=== PATIENT | male | born 1980 | race American Indian/Alaskan Native ===

== ENCOUNTER 2018-05-23 23:36 | Emergency (ER) | payer SELFPAY ==
[2018-05-24 00:19] LABS: Basophils % (Auto) 0.7 % (0.0-1.8); Eosinophils # (Auto) 0.2 K/mm3 (0.0-0.4); Eosinophils % (Auto) 3.4 % (0.0-4.3); Hematocrit 42.4 % (35.5-45.6); Hemoglobin 14.7 gm/dl (11.8-15.2); Lymphocytes # (Auto) 2.3 K/mm3 (1.2-5.4); Lymphocytes % (Auto) 41.8 % (13.4-35.0); Mean Corpuscular HGB Conc 35 % (32-34); Mean Corpuscular Hemoglobin 34 pg (28-32); Mean Corpuscular Volume 99 fl (84-94); Monocytes # (Auto) 0.6 K/mm3 (0.0-0.8); Monocytes % (Auto) 10.1 % (0.0-7.3); Platelet Count 231 K/mm3 (140-440); Red Blood Count 4.29 M/mm3 (3.65-5.03); Red Cell Distribution Width 12.8 % (13.2-15.2)
[2018-05-24 00:40] LABS: BUN/Creatinine Ratio 19; Blood Urea Nitrogen 15 mg/dL (9-20); Calcium 9.2 mg/dL (8.4-10.2); Hemolysis Index 16
--- NOTE | 2018-05-24 01:08 | Emergency Department Report ---
ED Chest Pain HPI - General Chief Complaint: Chest Pain Stated Complaint: CHEST PAIN Time Seen by Provider: 05/24/18 00:19 Source: patient Mode of arrival: Ambulatory Limitations: No Limitations - History of Present Illness Initial Comments: 37-year-old male with a past medical history of asthma presents to the hospital complaining of intermittent shooting sharp pain across his mid chest times one week. No active bleeding or leaving prior to supported. Patient denies shortness of breath, nausea, vomiting, lightheadedness, diaphoresis, recent travel, calf tenderness, or edema. Patient has not performed any heavy lifting. - Related Data Previous Rx's Medication Instructions Recorded Last Taken Type Ibuprofen [Motrin] 800 mg PO Q8HR PRN #20 tablet 05/24/18 Unknown Rx Allergies Allergy/AdvReac Type Severity Reaction Status Date / Time No Known Allergies Allergy Unverified 05/23/18 23:54 Heart Score - HEART Score History: Slightly suspicious EKG: Normal Age: < 45 Risk factors: 1-2 risk factors (former smoker) Troponin: < normal limit HEART Score: 1 ED Review of Systems ROS: Stated complaint: CHEST PAIN Other details as noted in HPI Comment: All other systems reviewed and negative ED Past Medical Hx - Past Medical History Previous Medical History?: Yes Hx Asthma: Yes - Surgical History Past Surgical History?: No - Social History Smoking Status: Former Smoker Substance Use Type: None - Medications Home Medications: Home Medications Medication Instructions Recorded Confirmed Last Taken Type Ibuprofen [Motrin] 800 mg PO Q8HR PRN #20 tablet 05/24/18 Unknown Rx ED Physical Exam - General Limitations: No Limitations - Other Other exam information: General: No limitations, patient is alert in no acute distress Head exam: Atraumatic, normocephalic Eyes exam: Normal appearance, pupils equal reactive to light, extraocular movements intact ENT: Moist mucous membrane, normal oropharynx Neck exam: Normal inspection, full range of motion, no meningismus nontender Respiratory exam: Clear to auscultation bilateral, no wheezes, rales, crackles Cardiovascular: Normal rate and rhythm, normal heart sounds, chest wall nontender Abdomen: Soft, nondistended, and nontender, with normal bowel sounds, no rebound, or guarding Extremity: Full range of motion normal inspection no deformity, no calf tenderness or edema Back: Normal Inspection, full range of motion, no tenderness Neurologic: Alert, oriented x3, cranial nerves intact, no motor or sensory deficit Psychiatric: normal affect, normal mood Skin: Warm, dry, intact ED Course Vital Signs 05/23/18 05/24/18 05/24/18 23:54 00:15 00:16 Temperature 98.6 F Pulse Rate 74 Respiratory 20 18 Rate Blood Pressure 159/104 O2 Sat by Pulse 98 97 Oximetry 05/24/18 05/24/18 00:30 00:45 Temperature Pulse Rate 68 75 Respiratory 18 18 Rate Blood Pressure 121/73 146/85 O2 Sat by Pulse 99 98 Oximetry ED Medical Decision Making - Lab Data Result diagrams: 05/24/18 00:06 05/24/18 00:06 Lab Results 05/24/18 05/24/18 05/24/18 Range/Units 00:06 00:06 01:02 WBC 5.5 (4.5-11.0) K/mm3 RBC 4.29 (3.65-5.03) M/mm3 Hgb 14.7 (11.8-15.2) gm/dl Hct 42.4 (35.5-45.6) % MCV 99 H (84-94) fl MCH 34 H (28-32) pg MCHC 35 H (32-34) % RDW 12.8 L (13.2-15.2) % Plt Count 231 (140-440) K/mm3 Lymph % (Auto) 41.8 H (13.4-35.0) % Roosevelt % (Auto) 10.1 H (0.0-7.3) % Eos % (Auto) 3.4 (0.0-4.3) % Baso % (Auto) 0.7 (0.0-1.8) % Lymph # 2.3 (1.2-5.4) K/mm3 Roosevelt # 0.6 (0.0-0.8) K/mm3 Eos # 0.2 (0.0-0.4) K/mm3 Baso # 0.0 (0.0-0.1) K/mm3 Seg Neutrophils % 44.0 (40.0-70.0) % Seg Neutrophils # 2.4 (1.8-7.7) K/mm3 D-Dimer < 135 (0-234) ng/mlDDU Sodium 144 (137-145) mmol/L Potassium 3.7 (3.6-5.0) mmol/L Chloride 104.3 (98-107) mmol/L Carbon Dioxide 26 (22-30) mmol/L Anion Gap 17 mmol/L BUN 15 (9-20) mg/dL Creatinine 0.8 (0.8-1.5) mg/dL Estimated GFR > 60 ml/min BUN/Creatinine Ratio 19 % Glucose 101 H (75-100) mg/dL Calcium 9.2 (8.4-10.2) mg/dL Troponin T < 0.010 (0.00-0.029) ng/mL - EKG Data -: EKG Interpreted by Me EKG shows normal: sinus rhythm, axis (qrs 46), QRS complexes (qrsd 98), ST-T waves (no stemi/t inv) Rate: normal - EKG Data When compared to previous EKG there are: previous EKG unavailable - Radiology Data Radiology results: report reviewed FINAL REPORT EXAM: XR CHEST ROUTINE 2V HISTORY: cp TECHNIQUE: PA and lateral views of the chest were submitted. FINDINGS: The heart size and mediastinum appear normal. The lungs are not congested. There are no localized infiltrates or effusions. There is a 3 mm nodule noted within the right lower lobe. The skeletal structures appear well maintained. IMPRESSION: No acute cardiopulmonary process. 3 millimeter nodule noted in the right lower lobe. If previous studies are available they should be submitted for comparison. Otherwise follow-up chest x-ray and 12 months recommended to confirm stability. - Medical Decision Making Patient does not have any significant cardiac, DVT, or PE risk factors. Pain is atypical. Enzymes and EKG unremarkable. D-dimer negative. Patient blood pressure also borderline in these repeat assessment as outpatient. Patient be treated symptomatically for atypical chest pain and follow up will be encouraged - Differential Diagnosis costochondritis, atypical chest pain, GERD, MD, stable angina, PE Critical Care Time: No Critical care attestation.: If time is entered above; I have spent that time in minutes in the direct care of this critically ill patient, excluding procedure time. ED Disposition Clinical Impression: Atypical chest pain, Elevated blood pressure reading, Lung nodule Disposition: DC- TO HOME OR SELFCARE Is pt being admited?: No Does the pt Need Aspirin: No Condition: Stable Instructions: Chest Pain (ED), How to Take a Blood Pressure (ED), Pulmonary Nodules (ED) Additional Instructions: Take the medication as prescribed. Follow up with your doctor or doctor/clinic provided. Return if symptoms worsen as indicated by your discharge instructions. Your chest x-ray shows a right-sided lung nodule. This needs to be monitored by an outpatient physician with recommended repeat x-ray in 1 year to reassess nodule size. Prescriptions: Ibuprofen [Motrin] 800 mg PO Q8HR PRN #20 tablet PRN Reason: Pain, Moderate (4-6) Referrals: [facility] [Provider Group] - 3-5 Days SHWETA KRISHNAMURTHY MD [Staff Physician] - 3-5 Days Time of Disposition: 02:16
--- NOTE | 2018-05-24 01:30 | XRay Report ---
FINAL REPORT EXAM: XR CHEST ROUTINE 2V HISTORY: cp TECHNIQUE: PA and lateral views of the chest were submitted. FINDINGS: The heart size and mediastinum appear normal. The lungs are not congested. There are no localized infiltrates or effusions. There is a 3 mm nodule noted within the right lower lobe. The skeletal structures appear well maintained. IMPRESSION: No acute cardiopulmonary process. 3 millimeter nodule noted in the right lower lobe. If previous studies are available they should be submitted for comparison. Otherwise follow-up chest x-ray and 12 months recommended to confirm stability.
[2018-05-24 02:23] VITALS: BP 140/83
== END 2018-05-24 02:23 | disposition home or self-care (01) ==
LOC: ED 23:36
DX: R07.89 Other chest pain (principal); R03.0 Elevated blood-pressure reading, without diagnosis of hypertension; R91.1 Solitary pulmonary nodule; J45.909 Unspecified asthma, uncomplicated; Z87.891 Personal history of nicotine dependence
CPT/HCPCS: 36415; 71046; 80048; 84484; 85025; 85379; 93005; 93010